=== PATIENT | male | born 1980 | race Caucasian/White ===

== ENCOUNTER 2017-03-10 20:01 | Emergency (ER) | payer OTHER ==
[~2017-03-10] VITALS: Ht 180.3 cm; Wt 110.2 kg
[2017-03-10] MEDS ORDERED: ALLE24TA8 PO (20:22)
[2017-03-10] MEDS ORDERED: ONETAB4 PO (20:22)
[2017-03-11] MEDS ORDERED: ERYTHROMYCIN OPHTH OINT OS ONE (00:15)
[2017-03-11] MEDS ORDERED: FLUORESCEIN OPHTH 1 MG STRIP As Ordered ONE (00:15)
[2017-03-11] MEDS ORDERED: ADACEL/BOOSTRIX VACCINE (DIPHTH/PERTUSS/ACELL/TETANUS)0.5ML SYR (90715) IM ONE (00:15)
[2017-03-11] MEDS ORDERED: FLUORESCEIN OPHTH 1 MG STRIP OS ONE (00:15)
[2017-03-11] MEDS ORDERED: ERYTOIN8 OS (00:26)
[2017-03-11 00:57] VITALS: BP 133/84
== END 2017-03-11 00:58 | disposition home or self-care (01) ==
LOC: M ED 20:01
DX: H16.012 Central corneal ulcer, left eye (principal); Z79.899 Other long term (current) drug therapy

== ENCOUNTER 2017-05-06 08:33 | Emergency (ER) | payer OTHER ==
[~2017-05-06] VITALS: Ht 182.9 cm; Wt 104.5 kg
[~2017-05-06 08:33] MED LIST: ALLE24TA8 PO; ERYTOIN8 OS; ONETAB4 PO
[2017-05-06] MEDS ORDERED: ONDANSETRON 4MG/2ML VIAL (J2405) IV ONE (09:15)
[2017-05-06] MEDS ORDERED: KETOROLAC 30 MG/ML VIAL (J1885) IV ONE (09:15)
[2017-05-06] MEDS ORDERED: GASTROGRAFIN SOLUTION 30ML (Q9963) As Ordered ONE (09:25)
[2017-05-06] MEDS ORDERED: NS 500 ML IV ONE (09:30)
[2017-05-06 09:36] LABS: BASO % 0.1 % (0.0-1.0); EOS # 0.2 K/mm3 (0.0-0.50); EOS % 1.5 % (0.0-3.0); LARGE UNSTAINED CELL # 0.1 K/mm3 (0.0-0.4); LARGE UNSTAINED CELL % 0.8 % (0.0-4.0); LYMPH # 1.3 K/mm3 (1.5-4.5); LYMPH % 6.9 % (24.0-44.0); MEAN CORPUSCULAR HEMOGLOBIN 29.2 pg (27.0-33.0); MEAN CORPUSCULAR HGB CONC 34.4 g/dl (32.0-36.5); MONO % 6.1 % (0.0-5.0); NEUTROPHILS # 14.4 K/mm3 (1.8-7.7); NEUTROPHILS % 84.5 % (36.0-66.0); PLATELET COUNT, AUTOMATED 278 k/mm3 (150-450); RED CELL DISTRIBUTION WIDTH 13.2 % (11.5-14.5)
[2017-05-06] MEDS ORDERED: GASTROGRAFIN SOLUTION 30ML (Q9963) PO ONE ×2 (09:40→10:05)
[2017-05-06 09:59] LABS: ALBUMIN 3.1 GM/DL (3.2-5.2); ALBUMIN/GLOBULIN RATIO 0.78 (1.00-1.93); ALKALINE PHOSPHATASE 91 U/L (45-117); ALT/SGPT 54 U/L (12-78); AMYLASE 44 U/L (25-115); ANION GAP 7 MEQ/L (8-16); AST/SGOT 35 U/L (15-37); BLOOD UREA NITROGEN 11 MG/DL (7-18); CALCIUM LEVEL 8.3 MG/DL (8.5-10.1); CARBON DIOXIDE LEVEL 25 MEQ/L (21-32); CHLORIDE LEVEL 107 MEQ/L (98-107); CREATININE FOR GFR 0.78 MG/DL (0.70-1.30); GLOMERULAR FILTRATION RATE > 60.0 (>60); GLUCOSE, FASTING 99 MG/DL (70-105); POTASSIUM SERUM 3.9 MEQ/L (3.5-5.1); SODIUM LEVEL 139 MEQ/L (136-145); TOTAL PROTEIN 7.1 GM/DL (6.4-8.2)
[2017-05-06] MEDS ORDERED: ISOVUE-370 76% 100ML VIAL (Q9967) As Ordered ONE (10:57)
[2017-05-06 11:33] VITALS: BP 127/67
[2017-05-06] MEDS ORDERED: ZOFR4TAB3 PO (11:40)
[2017-05-06] MEDS ORDERED: CIPR-249 PO (11:40)
[2017-05-06] MEDS ORDERED: FLAG500T PO (11:40)
[2017-05-06] MEDS ORDERED: metroNIDAZOLE (FLAGYL) 500 MG TAB PO ONE (11:45)
[2017-05-06] MEDS ORDERED: CIPROFLOXACIN 500 MG TAB PO ONE (11:45)
--- NOTE | 2017-05-06 11:46 | REP ---
CT abdomen and pelvis with IV and oral contrast: History: Diffuse abdominal pain and distension. CT contrast dose: 100 mL of Isovue 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 The lung bases are clear. There is mild diffuse fatty infiltration of the liver. No adrenal lesion is seen on either side. Spleen is unremarkable. There is a small accessory splenule. No focal hepatic lesion is seen. The gallbladder and pancreas are unremarkable. The kidneys enhance symmetrically and are morphologically intact. A normal appendix is seen. No small bowel abnormality is observed. There is sigmoid colon diverticulitis with mural thickening, raymond colonic inflammation and some extraluminal gas tracking up the pericolic fat along the left anterior psoas margin. There is some retroperitoneal fat edema extending nearly to the aortic bifurcation. There is no evidence of abscess or free intraperitoneal air. No other abnormality. Impression: Acute diverticulitis sigmoid colon with pericolonic inflammation and uncontained pericolonic and retroperitoneal gas tracking up along the anterior aspect of the psoas muscle. No abscess or free air. Fatty infiltration of the liver is also noted. Signed by Tad Flynn MD 05/06/2017 11:53 A
== END 2017-05-06 11:59 | disposition home or self-care (01) ==
LOC: M ED 08:33
DX: K57.32 Diverticulitis of large intestine without perforation or abscess without bleeding (principal); R11.0 Nausea; R14.3 Flatulence; K76.0 Fatty (change of) liver, not elsewhere classified; Z79.899 Other long term (current) drug therapy
CPT/HCPCS: 74177; 80053; 81001; 82150; 83605; 83690; 85025; 86140; 96374; 96375; 99283; J1885; J2405; Q9963; Q9967

== ENCOUNTER 2017-08-03 22:29 | Emergency (ER) | payer OTHER ==
[~2017-08-03] VITALS: Ht 182.9 cm; Wt 101.8 kg
[~2017-08-03 22:29] MED LIST changes: +CIPR-249 PO; +FLAG500T PO; +ZOFR4TAB3 PO
[2017-08-03] MEDS ORDERED: DICLOXACILLIN 250 MG CAP PO SCH (23:00)
[2017-08-03] MEDS ORDERED: DICL500C PO (23:01)
[2017-08-03 23:50] VITALS: BP 129/83
== END 2017-08-03 23:51 | disposition home or self-care (01) ==
LOC: M ED 22:29
DX: J02.9 Acute pharyngitis, unspecified (principal); L73.9 Follicular disorder, unspecified

== ENCOUNTER → 2018-06-25 | Outpatient (CLI) | payer OTHER | LOC: M WUC 09:09 | DX: M25.561 Pain in right knee (principal) | CPT/HCPCS: 73564 ==

== ENCOUNTER → 2022-05-14 | Outpatient (CLI) | payer OTHER ==
[~2022-05-14] MED LIST changes: +ALLE24TA7 PO; -ALLE24TA8 PO; +DICL500C PO; +ZOFR4TAB14 PO; -ZOFR4TAB3 PO
[2022-05-14 13:52] LABS: BASO % 0.3 % (0.0-1.0); EOS # 0.2 10^3/uL (0.0-0.5); EOS % 2.1 % (0.0-3.0); HEMOGLOBIN 13.5 g/dl (13.5-17.5); LYMPH # 2.7 10^3/uL (1.5-5.0); LYMPH % 31.2 % (24.0-44.0); MEAN CORPUSCULAR HEMOGLOBIN 28.9 pg (27.0-33.0); MEAN CORPUSCULAR HGB CONC 32.9 g/dl (32.0-36.5); MEAN CORPUSCULAR VOLUME 87.8 fl (80.0-96.0); MONO # 0.7 10^3/uL (0.0-0.8); MONO % 8.2 % (2.0-8.0); NEUTROPHILS # 5.1 10^3/uL (1.5-8.5); NEUTROPHILS % 57.9 % (36.0-66.0); PLATELET COUNT, AUTOMATED 334 10^3/uL (150-450); RED BLOOD COUNT 4.67 10^6/uL (4.30-6.10); WHITE BLOOD COUNT 8.7 10^3/uL (4.0-10.0)
[2022-05-14 14:33] LABS: ALBUMIN 3.7 GM/DL (3.2-5.2); ALT/SGPT 43 U/L (12-78); BILIRUBIN,TOTAL 0.5 MG/DL (0.2-1.0); BLOOD UREA NITROGEN 17 MG/DL (7-18); CALCIUM LEVEL 9.2 MG/DL (8.5-10.1); CARBON DIOXIDE LEVEL 28 MEQ/L (21-32); CHLORIDE LEVEL 105 MEQ/L (98-107); GLOMERULAR FILTRATION RATE > 60.0 (>60); GLUCOSE, FASTING 84 MG/DL (70-100); LIPASE 137 U/L (73-393); POTASSIUM SERUM 4.3 MEQ/L (3.5-5.1); SODIUM LEVEL 138 MEQ/L (136-145); TOTAL PROTEIN 7.1 GM/DL (6.4-8.2)
== END ==
LOC: M LAB 12:42
PROVIDERS: ATTEND Physician Assistant
DX: R10.9 Unspecified abdominal pain (principal)